=== PATIENT | female | born 1975 | race Caucasian/White ===

== ENCOUNTER 2019-03-16 06:20 | Emergency (ER) | payer OTHER ==
[~2019-03-16] VITALS: Ht 162.6 cm; Wt 74.8 kg
[2019-03-16 06:28] VITALS: Ht 162.6 cm; Wt 74.8 kg
[2019-03-16 07:27] VITALS: BP 154/102
== END 2019-03-16 07:27 | disposition home or self-care (01) ==
LOC: ED 06:20
DX: S60.011A Contusion of right thumb without damage to nail, initial encounter (principal); W22.8XXA Striking against or struck by other objects, initial encounter; Y93.89 Activity, other specified; Y92.89 Other specified places as the place of occurrence of the external cause; Y99.8 Other external cause status
CPT/HCPCS: Q0092

== ENCOUNTER 2019-10-16 08:26 | Emergency (ER) | payer OTHER ==
[~2019-10-16] VITALS: Ht 162.6 cm; Wt 78.0 kg
[2019-10-16 08:41] VITALS: Ht 162.6 cm; Wt 78.0 kg
[2019-10-16 09:57] LABS: CALCIUM 8.7 mg/dL (8.5-10.1); CHLORIDE SERUM 105 mmol/L (98-107); CREATININE SERUM 0.8 mg/dL (0.6-1.0); GFR1 > 60 mL/min; GLUCOSE SERUM 96 mg/dL (74-106); POTASSIUM SERUM 4.9 mmol/L (3.5-5.1); SODIUM SERUM 139 mmol/L (136-145)
[2019-10-16 10:02] LABS: ALBUMIN 3.9 g/dL (3.4-5.0); ALKALINE PHOSPHATASE 65 U/L (46-116); ALT/SGPT 42 U/L (14-59); AST/SGOT 20 U/L (15-37); BILIRUBIN TOTAL 0.4 mg/dL (0.20-1.00); CHOLESTEROL 168 mg/dL (<200); LIPASE 161 IU/L (73-393); TOTAL PROTEIN, SERUM 7.7 g/dL (6.4-8.2)
[2019-10-16 10:56] LABS: UA SPECIFIC GRAVITY <=1.005 (1.005-1.035); microscopic required? YES; urine erythrocyte NEGATIVE (NEGATIVE)
[2019-10-16 11:06] LABS: BASOPHIL % 0.3 % (0-2); PLATELET COUNT 302 x10^3mcL (130-400); RED CELL DISTRIBUTION WIDTH 13.7 % (11.5-14.5)
[2019-10-16 12:13] VITALS: BP 151/91
== END 2019-10-16 12:13 | disposition home or self-care (01) ==
LOC: ED 08:26
PROVIDERS: Emergency Medicine
DX: R10.816 Epigastric abdominal tenderness (principal); R14.0 Abdominal distension (gaseous); R06.00 Dyspnea, unspecified
CPT/HCPCS: 36415; J1885; Q0092